=== PATIENT | female | born 1970 | race Asian ===

== ENCOUNTER 2019-05-17 18:36 | Emergency (ER) | payer OTHER ==
[2019-05-17 19:22] LABS: ABS Basophils 0.1 10^3/ul (0-0.2); ABS Eosinophils 0.1 10^3/ul (0-0.6); ABS Lymphocytes 1.6 10^3/ul (1.0-4.8); ABS Monocytes 0.4 10^3/ul (0-0.8); Eosinophil % 2.8 %; Hematocrit 38 % (35-47); Hemoglobin 13.2 g/dL (12.0-16.0); Mean Corpuscular HGB Conc 34 g/dL (31-36); Mean Corpuscular Hemoglobin 31 pg (27-31); Mean Corpuscular Volume 89 fL (80-97); Mean Platelet Volume 7.2 fL (7.4-10.4); Platelet Count 277 10^3/uL (150-450); Red Cell Distribution Width 14 % (10-15); White Blood Count 4.2 10^3/uL (3.5-10.8)
[2019-05-17 19:36] LABS: INR 0.97 (0.82-1.09)
[2019-05-17 19:38] LABS: Albumin 4.5 g/dL (3.2-5.2); Albumin/Globulin Ratio 1.6 (1-3); BUN/Creatinine Ratio 16.9 (8-20); Calcium 9.6 mg/dL (8.6-10.3); EGFR African American 80.9 (>60); EGFR Non-African American 66.9 (>60); Globulin 2.8 g/dL (2-4); Potassium 3.7 mmol/L (3.5-5.0); Total Bilirubin 0.3 mg/dL (0.2-1.0); Total Protein 7.3 g/dL (6.4-8.9)
--- NOTE | 2019-05-17 21:55 | ED ---
HPI Chest Pain - HPI Summary HPI Summary: This patient is a 49 year old F presenting to ED with a chief complaint of chest tightness with inspiration since two weeks ago worsening in the past two days. Patient states she has been waking up with the chest tightness and pain upon breathing. Patient denies cough. No LE edema. She states she recently had an infected tooth since two months ago for which she is seeing a dentist but denies fevers. Patient is not on control. Patient recently traveled to [place] two weeks ago. She did not feel SOB before traveling. The patient rates the pain 4/10 in severity. Symptoms aggravated by breathing. Symptoms alleviated by rest. No hx blood clots or cardiac problems. Does not smoke, not on oral contraceptives. - History of Current Complaint Chief Complaint: EDChestPainROMI Time Seen by Provider: 05/17/19 21:35 Hx Obtained From: Patient Onset/Duration: Started Weeks Ago - 2 weeks, Worse Since - past few days Timing: Intermittent - When waking up Initial Severity: Moderate Current Severity: Moderate Pain Intensity: 4 Pain Scale Used: 0-10 Numeric Character: Tightness Aggravating Factor(s): Nothing Alleviating Factor(s): Nothing Associated Signs and Symptoms: Positive: Chest Pain, Shortness of Breath. Negative: Fever, Cough, Edema - Allergy/Home Medications Allergies/Adverse Reactions: Allergies Allergy/AdvReac Type Severity Reaction Status Date / Time oxycodone Allergy Unknown Verified 05/17/19 22:05 Reaction Details Home Medications: Home Medications LoraTADine TAB(NF) [Claritin 10 MG TAB(NF)] 10 mg PO DAILY 05/17/19 [History Confirmed 05/17/19] PMH/Surg Hx/FS Hx/Imm Hx Endocrine/Hematology History: Denies: Hx Diabetes Cardiovascular History: Denies: Hx Hypertension, Hx Pacemaker/ICD GI History: Reports: Hx Irritable Bowel Musculoskeletal History: Reports: Hx Arthritis - NECK Denies: Hx Rheumatoid Arthritis, Hx Osteoporosis, Hx Scoliosis Sensory History: Denies: Hx Contacts or Glasses, Hx Hearing Aid Opthamlomology History: Denies: Hx Contacts or Glasses Neurological History: Denies: Hx Headaches, Other Neuro Impairments/Disorders Psychiatric History: Denies: Hx Panic Disorder - Cancer History Hx Chemotherapy: No Hx Radiation Therapy: No - Surgical History Surgery Procedure, Year, and Place: LEFT shoulder surgery 5/13/15; Infectious Disease History: No Infectious Disease History: Denies: History Other Infectious Disease, Traveled Outside the [place] in Last 30 Days - Family History Known Family History: Positive: Hypertension - Social History Alcohol Use: Occasionally Hx Substance Use: No Substance Use Type: Reports: None Hx Tobacco Use: No Smoking Status (MU): Never Smoked Tobacco Review of Systems Negative: Fever Positive: Dental Pain Positive: Chest Pain - Tightness worse on breathing Positive: Shortness Of Breath. Negative: Cough Negative: Edema All Other Systems Reviewed And Are Negative: Yes Physical Exam - Summary Physical Exam Summary: Constitutional: Well-developed, Well-nourished, Alert. (-) Distressed Skin: Warm, Dry HENT: Normocephalic; Atraumatic. Dental caries, no periapical abscess. Eyes: Conjunctiva normal Neck: Musculoskeletal ROM normal neck. (-) JVD, (-) Stridor, (-) Nuchal rigidity Cardio: Rhythm regular, bradycardia; Intact distal pulses; Radial pulses are 2+ and symmetric (-) Murmur Pulmonary/Chest wall: Effort normal. (-) Respiratory distress, (-) Wheezes, (-) Rales Abd: Soft, (-) tenderness, (-) Distension, (-) Guarding, (-) Rebound Musculoskeletal: (-) Edema Lymph: (-) Cervical adenopathy Neuro: Alert, Oriented x3 Psych: Mood and affect Normal Triage Information Reviewed: Yes Vital Signs On Initial Exam: Initial Vitals Temp Pulse Resp BP Pulse Ox 98.2 F 50 20 117/70 100 05/17/19 18:43 05/17/19 18:43 05/17/19 18:43 05/17/19 18:43 05/17/19 18:43 Vital Signs Reviewed: Yes Diagnostics - Vital Signs Vital Signs Temp Pulse Resp BP Pulse Ox 05/17/19 20:45 99.1 F 48 18 116/79 100 05/17/19 18:43 98.2 F 50 20 117/70 100 - Laboratory Lab Results: Lab Results 05/17/19 05/17/19 05/17/19 Range/Units 19:14 19:14 19:14 WBC 4.2 (3.5-10.8) 10^3/uL RBC 4.30 (3.70-4.87) 10^6 /uL Hgb 13.2 (12.0-16.0) g/dL Hct 38 (35-47) % MCV 89 (80-97) fL MCH 31 (27-31) pg MCHC 34 (31-36) g/dL RDW 14 (10-15) % Plt Count 277 (150-450) 10^3/uL MPV 7.2 L (7.4-10.4) fL Neut % (Auto) 47.3 % Lymph % (Auto) 39.0 % Barron % (Auto) 9.5 % Eos % (Auto) 2.8 % Baso % (Auto) 1.4 % Absolute Neuts (auto) 2.0 (1.5-7.7) 10^3/ul Absolute Lymphs (auto) 1.6 (1.0-4.8) 10^3/ul Absolute Monos (auto) 0.4 (0-0.8) 10^3/ul Absolute Eos (auto) 0.1 (0-0.6) 10^3/ul Absolute Basos (auto) 0.1 (0-0.2) 10^3/ul Absolute Nucleated RBC 0.0 10^3/ul Nucleated RBC % 0.0 INR (Anticoag Therapy) 0.97 (0.82-1.09) D-Dimer, Quantitative Pending Sodium 137 (135-145) mmol/L Potassium 3.7 (3.5-5.0) mmol/L Chloride 103 (101-111) mmol/L Carbon Dioxide 29 (22-32) mmol/L Anion Gap 5 (2-11) mmol/L BUN 15 (6-24) mg/dL Creatinine 0.89 (0.51-0.95) mg/dL Est GFR ( Amer) 80.9 (>60) Est GFR (Non-Af Amer) 66.9 (>60) BUN/Creatinine Ratio 16.9 (8-20) Glucose 123 H (70-100) mg/dL Calcium 9.6 (8.6-10.3) mg/dL Total Bilirubin 0.30 (0.2-1.0) mg/dL AST 20 (13-39) U/L ALT 15 (7-52) U/L Alkaline Phosphatase 63 (34-104) U/L Troponin I 0.00 (<0.04) ng/mL Total Protein 7.3 (6.4-8.9) g/dL Albumin 4.5 (3.2-5.2) g/dL Globulin 2.8 (2-4) g/dL Albumin/Globulin Ratio 1.6 (1-3) Result Diagrams: 05/17/19 19:14 05/17/19 19:14 Lab Statement: Any lab studies that have been ordered have been reviewed, and results considered in the medical decision making process. - Radiology CXR Radiology Interpretation Completed By: ED Physician Summary of Radiographic Findings: No acute processes, pending official radiology report. - EKG 1839 Cardiac Rate: Bradycardia - 54 BPM EKG Rhythm: Sinus Bradycardia Summary of EKG Findings: Sinus bradycardia at 54 BPM, T-wave inversions in V1 and V2 Re-Evaluation - Re-Evaluation First Eval Comment: Discussed with patient negative d-dimer, normal chest x-ray. Unclear cause for pleuritic chest pain, however no emergent need for further workup Chest Pain Course/Dx - Course Course Of Treatment: 49-year-old female with no past medical history presents with pleuritic chest pain. Chest Pain DDX: The patient is well appearing, with stable vitals. Differential includes. --Pneumothorax: Equal breath sounds , story inconsistent since gradual onset of symptoms. CXR shows no evidence of pneumothorax. Unlikely. --Aortic dissection: The patient does not describe the classical tearing chest pain radiating into the back, and the CXR does not show mediastinal widening or other signs of aortic dissection. Unlikely. --PE: Vitals wnl (not hypoxic, tachycardic or tachypneic). Wells low risk, d dimer < 200. --ACS: The initial EKG shows no ischemic changes. The initial troponin is not elevated. - Diagnoses Provider Diagnoses: Pleuritic chest pain Discharge ED - Sign-Out/Discharge Documenting (check all that apply): Patient Departure - Discharge Patient Received Moderate/Deep Sedation with Procedure: No - Discharge Plan Condition: Stable Disposition: HOME Patient Education Materials: Pleurisy (DC) Referrals: Vidhi Metcalf MD [Primary Care Provider] - Additional Instructions: You were seen in the emergency department for pleuritic chest pain. Your labs not show any evidence of blood clots or heart problems. EKG did not show a heart attack. Your chest x-ray did not show any evidence of pneumonia or collapsed lung. If any studies were not completed at the time of discharge you will be called with the relevant results. Please follow up with your primary care doctor in next 2-3 days and return to emergency department for worsening or concerning symptoms. - Billing Disposition and Condition Condition: STABLE Disposition: Home - Attestation Statements Document Initiated by Angelicibe: Yes Documenting Scribe: Baldomero Gutierrez Provider For Whom Scribe is Documenting (Include Credential): Ramez Antunez MD Scribe Attestation: IBaldomero, scribed for Ramez Antunez MD on 05/17/19 at 2300. Scribe Documentation Reviewed: Yes Provider Attestation: The documentation as recorded by the Baldomero dietz accurately reflects the service I personally performed and the decisions made by , Ramez Antunez MD Status of Scribe Document: Viewed
[2019-05-17 23:01] VITALS: BP 110/75
== END 2019-05-17 22:55 | disposition home or self-care (01) ==
LOC: ED 18:36
DX: R07.89 Other chest pain (principal); R06.02 Shortness of breath; Z79.899 Other long term (current) drug therapy; K08.89 Other specified disorders of teeth and supporting structures
CPT/HCPCS: 36415; 71046; 80053; 84484; 85025; 85379; 85610; 93005; 99283